=== PATIENT | male | born 1935 | race Caucasian/White ===

== ENCOUNTER 2019-05-28 06:41 | Day surgery (SDC) | payer OTHER ==
[~2019-05-28 06:41] MED LIST: ALLOPURINOL300 MG PO; AVAPRO300 MG PO; CARDURA8 MG PO; CATAPRES0.1 MG PO; CELEXA10 MG PO; CLONAZEPAM0.5 MG PO; CYMBALTA30 MG PO; LATANOPROST2.5 ML OP; LEVO-T50 MCG PO; LIPITOR20 MG PO; LYRICA50 MG PO; NIFE60TA3 PO; TENORMIN25 MG PO
== END 2019-05-28 10:55 | disposition home or self-care (01) ==
LOC: CIR.AMB 06:41
DX: M99.63 Osseous and subluxation stenosis of intervertebral foramina of lumbar region (principal)